=== PATIENT | male | born 1990 | race African-American/Black ===

== ENCOUNTER 2018-05-24 18:40 | Emergency (ER) | payer SELFPAY ==
[~2018-05-24] VITALS: Ht 165.1 cm; Wt 81.6 kg
[~2018-05-24 18:40] MED LIST: AMOX500C PO; CLAR500T3 PO; DICY20TA3 PO; METO25TA4 PO; OMEP20CA5 PO; OMEP20CA9 PO; ONDA4TAB12 PO; OXYC5TAB95 PO; RANI150C PO; TRAM50TA PO
[2018-05-24 18:45] VITALS: BP 159/94
[2018-05-24] MEDS ORDERED: RANI300C PO (19:03)
--- NOTE | 2018-05-24 19:03 | PHYS DOC ---
Past History Past Medical History: No Pertinent History, Anxiety, GERD, Other Past Surgical History: No Surgical History, Other Alcohol Use: None Drug Use: None Adult General Chief Complaint Chief Complaint: FOREIGNBODY EAR HPI HPI Patient is a 27-year-old male who presents with complaint that he was using a Q- tip to clean his ear when the cotton got stuck in his ear. He states that he has difficulty in hearing out of that ear now. He denies any ear pain. Patient also indicates that he has had problems with acid reflux for the last several months. He states that he had been prescribed some kind of a medication but he is not sure what it was. He states that it didn't work. Patient is requesting a prescription for ranitidine. Review of Systems Review of Systems Constitutional: Denies fever or chills [] Eyes: Denies change in visual acuity, redness, or eye pain [] HENT: Complains of decreased hearing and foreign body in his ear[] Respiratory: Denies cough or shortness of breath [] Cardiovascular: No additional information not addressed in HPI [] GI: Complains of heartburn[] Allergies Allergies Allergies Coded Allergies Type Severity Reaction Last Updated Verified No Known Drug Allergies 06/05/15 No Physical Exam Physical Exam Constitutional: Well developed, well nourished, no acute distress, non-toxic appearance. [] HENT: Normocephalic, atraumatic, bilateral external ears normal, right otic canal demonstrates foreign body consistent with cotton tip from Q-tip. [] Cardiovascular:Heart rate regular rhythm, no murmur [] Lungs & Thorax: Bilateral breath sounds clear to auscultation [] Abdomen: Bowel sounds normal, soft, no tenderness [] Skin: Warm, dry, no erythema, no rash. [] EKG EKG [] Radiology/Procedures Radiology/Procedures [] Course & Med Decision Making Course & Med Decision Making Pertinent Labs and Imaging studies reviewed. (See chart for details) Right ear foreign body removed with alligator forceps without difficulty by myself. Dragon Disclaimer Dragon Disclaimer This electronic medical record was generated, in whole or in part, using a voice recognition dictation system. Departure Departure: Impression: Primary Impression: Foreign body in right ear Additional Impression: GERD (gastroesophageal reflux disease) Disposition: 01 HOME, SELF-CARE Condition: STABLE Referrals: PCP,NO (PCP) Patient Instructions: Ear Foreign Body, Gastroesophageal Reflux Disease, Adult Scripts Ranitidine Hcl (RANITIDINE HCL) 300 Mg Capsule 1 CAP PO DAILY, #15 CAP Prov: JAY BELLA Jr. DO 05/24/18 Problem Qualifiers Primary Impression: Foreign body in right ear Encounter type: initial encounter Qualified Codes: T16.1XXA - Foreign body in right ear, initial encounter Additional Impression: GERD (gastroesophageal reflux disease) Esophagitis presence: esophagitis presence not specified Qualified Codes: K21.9 - Gastro-esophageal reflux disease without esophagitis JAY BELLA Jr. DO May 24, 2018 19:03
== END 2018-05-24 19:07 | disposition home or self-care (01) ==
LOC: ER 18:40
DX: T16.1XXA Foreign body in right ear, initial encounter (principal); K21.9 Gastro-esophageal reflux disease without esophagitis; F41.9 Anxiety disorder, unspecified; X58.XXXA Exposure to other specified factors, initial encounter; Y93.89 Activity, other specified; Y92.89 Other specified places as the place of occurrence of the external cause; Y99.8 Other external cause status
CPT/HCPCS: 69200; 99284

== ENCOUNTER 2018-07-05 01:48 | Emergency (ER) | payer OTHER ==
[~2018-07-05] VITALS: Ht 165.1 cm; Wt 85.3 kg
[~2018-07-05 01:48] MED LIST changes: +OXYC5TAB4 PO; -OXYC5TAB95 PO; +RANI300C PO
--- NOTE | 2018-07-05 02:31 | PHYS DOC ---
Adult General Chief Complaint Chief Complaint abd pain HPI HPI 28 male presented to the emergency department with 2 weeks history of abdominal pain described as cramps associated with feeling of bloating nausea and minimal vomiting. Also had to episode of diarrhea after taking a laxative also complaining of body aches and mild fever at home Review of Systems Review of Systems Constitutional: Denies chills [] Eyes: Denies change in visual acuity, redness, or eye pain [] HENT: Denies nasal congestion or sore throat [] Respiratory: Denies cough or shortness of breath [] Cardiovascular: No additional information not addressed in HPI [] : Denies dysuria or hematuria [] Musculoskeletal: Denies back pain or joint pain [] Integument: Denies rash or skin lesions [] Neurologic: Denies headache, focal weakness or sensory changes [] Endocrine: Denies polyuria or polydipsia [] All other systems were reviewed and found to be within normal limits, except as documented in this note. Current Medications Current Medications Current Medications Medications (Trade) Dose Ordered Sig/Keyur Start Time Stop Time Status Last Admin Dose Admin Dicyclomine HCl (Bentyl) 20 mg 1X ONCE 07/05/18 03:00 07/05/18 03:01 DC 07/05/18 02:42 20 MG Info (Do NOT chart on this entry -- for MONITORING) 1 each PRN DAILY PRN 07/05/18 03:00 07/07/18 02:59 Iohexol (Omnipaque 300 Mg/ml) 75 ml 1X ONCE 07/05/18 03:00 07/05/18 03:01 DC 07/05/18 02:56 75 ML Ketorolac Tromethamine (Toradol 30mg Vial) 30 mg 1X ONCE 07/05/18 03:00 07/05/18 03:01 DC 07/05/18 02:42 30 MG Allergies Allergies Allergies Coded Allergies Type Severity Reaction Last Updated Verified No Known Drug Allergies 06/05/15 No Physical Exam Physical Exam Constitutional: Well developed, well nourished, no acute distress, non-toxic appearance. [] HENT: Normocephalic, atraumatic, bilateral external ears normal, oropharynx moist, no oral exudates, nose normal. [] Eyes: PERRLA, EOMI, conjunctiva normal, no discharge. [] Neck: Normal range of motion, no tenderness, supple, no stridor. [] Cardiovascular:Heart rate regular rhythm, no murmur [] Lungs & Thorax: Bilateral breath sounds clear to auscultation [] Abdomen: Bowel sounds normal, soft, tenderness all over , no masses, no pulsatile masses. [] Skin: Warm, dry, no erythema, no rash. [] Back: No tenderness, no CVA tenderness. [] Extremities: No tenderness, no cyanosis, no clubbing, ROM intact, no edema. [] Neurologic: Alert and oriented X 3, normal motor function, normal sensory function, no focal deficits noted. [] Psychologic: Affect normal, judgement normal, mood normal. [] Current Patient Data Vital Signs Vital Signs Date Time Temp Pulse Resp B/P (MAP) Pulse Ox O2 Delivery O2 Flow Rate FiO2 07/05/18 01:52 98.3 74 20 99 Room Air Lab Results Laboratory Tests Test 07/05/18 02:55 White Blood Count 8.9 x10^3/uL (4.0-11.0) Red Blood Count 5.60 x10^6/uL (4.30-5.70) Hemoglobin 18.0 g/dL (13.0-17.5) H Hematocrit 52.3 % (39.0-53.0) Mean Corpuscular Volume 94 fL (79-100) Mean Corpuscular Hemoglobin 32 pg (25-35) Mean Corpuscular Hemoglobin Concent 34 g/dL (31-37) Red Cell Distribution Width 13.4 % (11.5-14.5) Platelet Count 348 x10^3/uL (140-400) Neutrophils (%) (Auto) 92 % (31-73) H Lymphocytes (%) (Auto) 7 % (24-48) L Monocytes (%) (Auto) 1 % (0-9) Eosinophils (%) (Auto) 0 % (0-3) Basophils (%) (Auto) 1 % (0-3) Neutrophils # (Auto) 8.2 x10^3uL (1.8-7.7) H Lymphocytes # (Auto) 0.6 x10^3/uL (1.0-4.8) L Monocytes # (Auto) 0.1 x10^3/uL (0.0-1.1) Eosinophils # (Auto) 0.0 x10^3/uL (0.0-0.7) Basophils # (Auto) 0.0 x10^3/uL (0.0-0.2) Platelet Estimate Pending Urine Collection Type Unknown Urine Color Yellow Urine Clarity Clear Urine pH 8.5 Urine Specific [place] 1.020 Urine Protein Neg (NEG-TRACE) Urine Glucose (UA) Neg mg/dL (NEG) Urine Ketones (Stick) 40 mg/dL (NEG) Urine Blood Trace (NEG) Urine Nitrite Neg (NEG) Urine Bilirubin Neg (NEG) Urine Urobilinogen Dipstick 0.2 mg/dL (0.2 mg/dL) Urine Leukocyte Esterase Neg (NEG) Urine RBC 3-5 /HPF (0-2) Urine WBC Occ /HPF (0-4) Urine Squamous Epithelial Cells Few /LPF Urine Transitional Epithelial Cells Few /LPF Urine Renal Epithelial Cells Few /LPF Urine Bacteria Few /HPF (0-FEW) Urine Mucus Slight /LPF Sodium Level 139 mmol/L (136-145) Potassium Level 3.9 mmol/L (3.5-5.1) Chloride Level 99 mmol/L (98-107) Carbon Dioxide Level 29 mmol/L (21-32) Anion Gap 11 (6-14) Blood Urea Nitrogen 8 mg/dL (8-26) Creatinine 1.2 mg/dL (0.7-1.3) Estimated GFR (Cockcroft-Gault) 87.2 BUN/Creatinine Ratio 7 (6-20) Glucose Level 120 mg/dL (70-99) H Calcium Level 9.4 mg/dL (8.5-10.1) Total Bilirubin 1.6 mg/dL (0.2-1.0) H Aspartate Amino Transferase (AST) 20 U/L (15-37) Alanine Aminotransferase (ALT) 48 U/L (16-63) Alkaline Phosphatase 83 U/L (46-116) Total Protein 9.0 g/dL (6.4-8.2) H Albumin 4.5 g/dL (3.4-5.0) Albumin/Globulin Ratio 1.0 (1.0-1.7) Lipase 71 U/L (73-393) L Urine Opiates Screen Neg (NEG) Urine Methadone Screen Neg (NEG) Urine Barbiturates Neg (NEG) Urine Phencyclidine Screen Neg (NEG) Urine Amphetamine/Methamphetamine Neg (NEG) Urine Benzodiazepines Screen Neg (NEG) Urine Cocaine Screen Neg (NEG) Urine Cannabinoids Screen Neg (NEG) Urine Ethyl Alcohol Neg (NEG) Influenza Type A (Rapid) Negative (NEGATIVE) Influenza Type B (Rapid) Negative (NEGATIVE) EKG EKG [] Radiology/Procedures Radiology/Procedures [] Course & Med Decision Making Course & Med Decision Making Pertinent Labs and Imaging studies reviewed. (See chart for details) [] Final Impression Final Impression [] Problems: (1) Vomiting Qualifiers: Qualified Codes: R11.2 - Nausea with vomiting, unspecified Dragon Disclaimer Dragon Disclaimer This electronic medical record was generated, in whole or in part, using a voice recognition dictation system. JORGE XIONG MD Jul 05, 2018 02:31
[2018-07-05] MEDS ORDERED: METO-239 PO (02:33)
[2018-07-05] MEDS ORDERED: DICY10CA3 PO (02:50)
[2018-07-05] MEDS ORDERED: ONDA4TAB7 PO (02:50)
[2018-07-05] MEDS ORDERED: IOHEXOL 300 MG/ML 75 ML VIAL. IV ONE (03:00)
[2018-07-05] MEDS ORDERED: DICYCLOMINE 20 MG/2 ML AMPUL. IM ONE (03:00)
[2018-07-05] MEDS ORDERED: CONTRAST GIVEN MC PRN (03:00)
[2018-07-05] MEDS ORDERED: KETOROLAC 30 MG/ML VIAL. IV ONE (03:00)
[2018-07-05 03:20] LABS: BASO % 1 % (0-3); EOS % 0 % (0-3); HEMATOCRIT 52.3 % (39.0-53.0); LYMPH # 0.6 x10^3/uL (1.0-4.8); LYMPH % 7 % (24-48); MEAN CORPUSCULAR HEMOGLOBIN 32 pg (25-35); MEAN CORPUSCULAR HGB CONC 34 g/dL (31-37); MEAN CORPUSCULAR VOLUME 94 fL (79-100); MONO # 0.1 x10^3/uL (0.0-1.1); MONO % 1 % (0-9); NEUT # 8.2 x10^3uL (1.8-7.7); NEUT % 92 % (31-73); PLATELET COUNT 348 x10^3/uL (140-400); RED CELL DISTRIBUTION WIDTH 13.4 % (11.5-14.5); WHITE BLOOD COUNT 8.9 x10^3/uL (4.0-11.0)
[2018-07-05 03:22] LABS: BILIRUBIN,URINE NEG (NEG); CLARITY,URINE CLEAR; COLOR,URINE YELLOW; GLUCOSE,URINE NEG (NEG)
[2018-07-05 03:23] LABS: BACTERIA,URINE FEW /HPF (0-FEW); NITRITE,URINE NEG (NEG); SQUAMOUS EPITHELIAL CELL,UR FEW /LPF; UROBILINOGEN,URINE 0.2 mg/dL (0.2 mg/dL); WBC,URINE OCC /HPF (0-4)
[2018-07-05 03:26] LABS: BARBITURATES NEG (NEG); BENZODIAZEPINES NEG (NEG); CANNABINOIDS NEG (NEG); COCAINE NEG (NEG); METHADONE NEG (NEG); OPIATES NEG (NEG); PHENCYCLIDINE NEG (NEG)
[2018-07-05 03:29] LABS: ALBUMIN 4.5 g/dL (3.4-5.0); CALCIUM 9.4 mg/dL (8.5-10.1); CREATININE 1.2 mg/dL (0.7-1.3); GFR 87.2; POTASSIUM 3.9 mmol/L (3.5-5.1); TOTAL BILIRUBIN 1.6 mg/dL (0.2-1.0)
[2018-07-05 03:30] LABS: AMPHETAMINE/METHAMPHETAMINE NEG (NEG)
[2018-07-05 03:31] LABS: INFLUENZA A PATIENT NEGATIVE (NEGATIVE); INFLUENZA B PATIENT NEGATIVE (NEGATIVE)
--- NOTE | 2018-07-05 03:52 | RAD ---
INDICATION: Abomen pain, nausea, vomiting, fever, chills COMPARISON: None. TECHNIQUE: Axial CT images obtained through the abdomen and pelvis with contrast. One or more of the following individualized dose reduction techniques were utilized for this examination: 1. Automated exposure control; 2. Adjustment of the mA and/or kV according to patient size; 3. Use of iterative reconstruction technique. FINDINGS: Tiny hiatal hernia versus mild distention distal esophagus. Abdominal aorta not aneurysmal. Liver is low-attenuation. Nonspecific but can be seen with fatty infiltration. Calcified granulomas of liver and spleen. Gallbladder is partially contracted. No peripancreatic fluid collection. No left-sided hydronephrosis. Urinary bladder has minimal urine within it at time of exam. Tiny fat-containing umbilical hernia. No right-sided hydronephrosis. Appendix measures up to about 6 mm without definite adjacent inflammatory changes. No dilated loops of bowel to suggest obstruction. IMPRESSION: 1. No evidence of bowel obstruction. 2. The appendix is near the upper limits of normal in size with no adjacent inflammatory changes to suggest appendicitis. Electronically signed by: Noah Baez MD (07/05/2018 3:48 AM) [facility]
[2018-07-05 04:17] LABS: % ATYL 1 % (0-0); % LYMPHS 3 % (24-48); % MONOS 5 % (0-10); % SEGS 91 % (35-66); PLT ESTIMATE ADEQUATE (ADEQUATE)
[2018-07-05 05:00] VITALS: BP 161/94
== END 2018-07-05 05:20 | disposition home or self-care (01) ==
LOC: ER 01:48
DX: R11.2 Nausea with vomiting, unspecified (principal); R14.0 Abdominal distension (gaseous); M79.10 Myalgia, unspecified site
CPT/HCPCS: 36415; 74177; 80053; 80307; 81001; 83690; 85007; 85025; 87804; 96372; 96374; 99284; J0500; J1885; Q9967

== ENCOUNTER 2018-07-06 18:55 | Emergency (ER) | payer SELFPAY ==
[~2018-07-06] VITALS: Ht 165.1 cm; Wt 85.3 kg
[~2018-07-06 18:55] MED LIST changes: +DICY10CA3 PO; +METO-239 PO; +ONDA4TAB7 PO
[2018-07-06 19:00] VITALS: BP 145/97
--- NOTE | 2018-07-06 19:02 | ED.ADGEN ---
Past History Past Medical History: Anxiety, GERD, Hypertension, Other Past Surgical History: No Surgical History Alcohol Use: None Drug Use: None Adult General Chief Complaint Chief Complaint "My shoulder hurts here on lt... .I got in injury some how.. it makes the muscle in my neck, back, and chest tight and spasms.. when I move it .. it sometimes pops.. I need some strong pain meds.. Hydros or something... HPI HPI Patient is a 28 year old male who presents with above hx and complaints of left shoulder pain from unknown injury. Patient requesting narcotic medications for the pain. Patient is right-hand dominant. No history of specific trauma. No history of ill contacts, travel or immunosuppression. Patient localizes pain in movement of left shoulder. Does have deltoid sensation. Distal neurovascular intact. Patient does complain of muscle spasm in left trapezius shoulder and deltoid. Patient states his left shoulder pain radiated all the way down into his hand on the left. Pt. distal sensation and capillary refill equal to Rt. Patient states pain is 10 out of 10. Noted pt sleeping when I entered the room and had to be awaken for exam. Nothing makes pain better except hydrocodone meds. Review of Systems Review of Systems Constitutional: Denies fever or chills [] Eyes: Denies change in visual acuity, redness, or eye pain [] HENT: Denies nasal congestion or sore throat [] Respiratory: Denies cough or shortness of breath [] Cardiovascular: No additional information not addressed in HPI [] GI: Denies abdominal pain, nausea, vomiting, bloody stools or diarrhea [] : Denies dysuria or hematuria [] Musculoskeletal: Denies back pain or joint pain []complains of left shoulder muscle pain Integument: Denies rash or skin lesions [] Neurologic: Denies headache, focal weakness or sensory changes [] Endocrine: Denies polyuria or polydipsia [] All other systems were reviewed and found to be within normal limits, except as documented in this note. Family History Family History Noncontributory Current Medications Current Medications Current Medications Medications (Trade) Dose Ordered Sig/Keyur Start Time Stop Time Status Last Admin Dose Admin Ketorolac Tromethamine (Toradol Im) 60 mg 1X ONCE 07/06/18 20:00 07/06/18 20:01 DC Allergies Allergies Allergies Coded Allergies Type Severity Reaction Last Updated Verified No Known Drug Allergies 06/05/15 No Physical Exam Physical Exam Constitutional: Well developed, well nourished, no acute distress, non-toxic appearance. [] HENT: Normocephalic, atraumatic, bilateral external ears normal, oropharynx moist, no oral exudates, nose normal. [] Eyes: PERRLA, EOMI, conjunctiva normal, no discharge. [] Neck: Normal range of motion, no tenderness, supple, no stridor. [] Cardiovascular:Heart rate regular rhythm, no murmur [] Lungs & Thorax: Bilateral breath sounds clear to auscultation [] Abdomen: Bowel sounds normal, soft, no tenderness, no masses, no pulsatile masses. [] Skin: Warm, dry, no erythema, no rash. [] Multiple tattoos. Back: No tenderness, no CVA tenderness. [] Extremities: No tenderness, no cyanosis, no clubbing, ROM intact, no edema. [] Neurologic: Alert and oriented X 3, normal motor function, normal sensory function, no focal deficits noted. []DTRs +2 patella and brachial. No drift. Psychologic: Affect normal, judgement normal, mood normal. [] Current Patient Data Vital Signs Vital Signs Date Time Temp Pulse Resp B/P (MAP) Pulse Ox O2 Delivery O2 Flow Rate FiO2 07/06/18 19:00 98.9 93 18 93 Room Air EKG EKG [] Radiology/Procedures Radiology/Procedures I interpretation of chest x-ray and shoulder film shows no obvious fracture dislocation or pneumothorax. No acute cardiopulmonary findings.[] Course & Med Decision Making Course & Med Decision Making Pertinent Labs and Imaging studies reviewed. (See chart for details) Patient does seem to exhibit narcotic seeking behavior. Patient use ice packs left shoulder as needed for the next 3 days. May advance to moist warm compresses after 3 days. Patient follow-up primary care. Patient take Tylenol and ibuprofen for pain. Patient use sling for rest. Patient refused Toradol injection in spite of his complaints of 10 out of 10 pain. If no improvement return for re-exam and further work up. [] Final Impression Final Impression 1. Shoulder[]Lt Arthralgia- complaints Dragon Disclaimer Dragon Disclaimer This electronic medical record was generated, in whole or in part, using a voice recognition dictation system. RUTHIE MIRAMONTES MD Jul 06, 2018 19:02
[2018-07-06] MEDS ORDERED: KETOROLAC 60 MG/2 ML VIAL. IM ONE (20:00)
--- NOTE | 2018-07-06 20:00 | RAD ---
Two-view chest dated 07/06/2018. Comparison made to 03/07/2016. CLINICAL INDICATION: Chest pain and left shoulder pain. FINDINGS: PA and lateral views obtained. Heart and mediastinal contours are stable. Lungs are clear without focal consolidation. Vascular interstitium within normal limits. No pleural effusion or pneumothorax. IMPRESSION: No acute radiographic abnormality. Electronically signed by: Noe Blancas MD (07/06/2018 7:57 PM) [facility]
--- NOTE | 2018-07-06 20:01 | RAD ---
Three-view left shoulder dated 07/06/2018. No comparison available. Clinical data indication: Pain after injury. FINDINGS: 3 views left shoulder show normal bony alignment. No displaced fracture. No acute osseous or articular abnormality. IMPRESSION: No acute findings. Electronically signed by: Noe Blancas MD (07/06/2018 7:57 PM) [facility]
== END 2018-07-06 20:13 | disposition home or self-care (01) ==
LOC: ER 18:55
DX: M25.512 Pain in left shoulder (principal); F41.9 Anxiety disorder, unspecified; K21.9 Gastro-esophageal reflux disease without esophagitis; I10 Essential (primary) hypertension
CPT/HCPCS: 71046; 73030; 99283